=== PATIENT | female | born 1955 | race Caucasian/White ===

== ENCOUNTER 2022-10-12 16:41 | Inpatient (IN) | payer BC, MEDICARE ==
[~2022-10-12] VITALS: Ht 149.9 cm; Wt 83.0 kg
[~2022-10-12 16:41] MED LIST: HYDR25TA4 PO; LEVO200T8 PO; METO25TA4 PO; WARF-58 PO
[2022-10-12 17:24] LABS: BASOPHILS % (AUTO) 0.4 % (0.0-2.0); EOSINOPHILS # (AUTO) 0.1 K/uL (0.0-0.7); EOSINOPHILS % (AUTO) 0.6 % (0.0-6.0); HEMATOCRIT 43 % (33-45); HEMOGLOBIN 13.8 g/dL (11.5-14.8); LYMPHOCYTES % (AUTO) 21.1 % (20.0-44.0); MEAN CORPUSCULAR HEMOGLOBIN 27 PG (26.0-33.0); MEAN CORPUSCULAR HGB CONC 32 g/dl (31.0-36.0); MEAN CORPUSCULAR VOLUME 85 fL (82-100); MONOCYTES # (AUTO) 1.4 K/uL (0.1-1.30); MONOCYTES % (AUTO) 10.1 % (2.0-12.0); NEUTROPHILS # (AUTO) 9.6 K/uL (1.8-8.9); NEUTROPHILS % (AUTO) 67.8 % (43.0-81.0); PLATELET COUNT (AUTO) 313 K/uL (150-450); RED BLOOD CELL COUNT(AUTO) 5.03 MIL/uL (4.0-5.2); WHITE BLOOD COUNT (AUTO) 14.1 K/uL (4.3-11.0)
[2022-10-12] MEDS ORDERED: DILTIAZEM HCL 30 MG TABLET PO ONE (17:30)
[2022-10-12] MEDS ORDERED: DILTIAZEM HCL 25 MG IV ONE ×2 (17:44)
[2022-10-12 17:47] LABS: CALCIUM, SERUM 9.2 mg/dL (8.5-10.1); CARBON DIOXIDE 33 mmol/L (21-32); CHLORIDE 100 mmol/L (98-107); CREATININE 0.9 mg/dL (0.6-1.3); GLUCOSE 99 mg/dL (74-106); POTASSIUM 3.7 mmol/L (3.5-5.1); SODIUM SERUM 139 mmol/L (136-145); UREA NITROGEN, BLOOD 23 mg/dL (7-18)
[2022-10-12 18:00] LABS: ALANINE AMINOTRANSFERASE 74 U/L (12-78); ALBUMIN 3.5 g/dL (3.4-5.0); ALKALINE PHOSPHATASE 95 U/L (46-116); BILIRUBIN,DIRECT 0.2 mg/dL (0.0-0.2); BILIRUBIN,TOTAL 0.9 mg/dL (0.2-1.0); NT-PRO BNP 588 pg/mL (0-125); TOTAL PROTEIN, SERUM 7.6 g/dL (6.4-8.2)
[2022-10-12] MEDS ORDERED: DILTIAZEM HCL 50 MG IV IV ONE (18:00)
[2022-10-12 18:12] LABS: ASPARTATE AMINOTRANSFERASE 23 U/L (15-37)
[2022-10-12] MEDS ORDERED: FUROSEMIDE 20 MG/2 ML VIAL IV ONE (18:30)
[2022-10-12] MEDS ORDERED: DILTIAZEM HCL CD 240 MG PO ONE (18:30)
[2022-10-12] MEDS ORDERED: DILTIAZEM HCL CD 240 MG PO SCH (18:30)
[2022-10-12] MEDS ORDERED: FUROSEMIDE 20 MG/2 ML VIAL ONE (18:33)
[2022-10-12] MEDS ORDERED: SODI325T PO (19:35)
[2022-10-12] MEDS ORDERED: MONT10TA22 PO (19:35)
[2022-10-12] MEDS ORDERED: METF-881 PO (19:35)
[2022-10-12] MEDS ORDERED: DILT240T3 PO (19:35)
[2022-10-12] MEDS ORDERED: POTA10CA43 PO (19:35)
[2022-10-12] MEDS ORDERED: FERR325T23 PO (19:35)
[2022-10-12] MEDS ORDERED: FLUT1BLS INH (19:35)
[2022-10-12] MEDS ORDERED: SITA50TA PO (19:35)
[2022-10-12] MEDS ORDERED: MINE3.5O EACHEYE (19:37)
[2022-10-12] MEDS ORDERED: ACETAMINOPHEN ES 500 MG TABLET PO ONE (20:30)
[2022-10-12] MEDS ORDERED: ONDANSETRON HCL/PF 4 MG/2 ML VIAL IVP PRN (22:00)
[2022-10-12] MEDS ORDERED: ACETAMINOPHEN 325 MG TABLET PO PRN (22:00)
[2022-10-12] MEDS ORDERED: WARFARIN SODIUM 2 MG TABLET PO SCH (22:00)
[2022-10-12 22:05] VITALS: BP 106/65; TEMP 98.5; O2SAT 95
[2022-10-13] VITALS (7 sets, daily range): BP systolic 99–121; BP diastolic 58–75; TEMP 97.2–98.7; O2SAT 91–99
[2022-10-13] MEDS ORDERED: LEVALBUTEROL HCL NEB 1.25 MG/0.5 ML VIAL.NEB NEB PRN (05:30)
[2022-10-13 05:55] LABS: BASOPHILS % (AUTO) 0.1 % (0.0-2.0); EOSINOPHILS # (AUTO) 0.1 K/uL (0.0-0.7); EOSINOPHILS % (AUTO) 0.6 % (0.0-6.0); HEMATOCRIT 40 % (33-45); MEAN CORPUSCULAR HEMOGLOBIN 28 PG (26.0-33.0); MEAN CORPUSCULAR HGB CONC 32 g/dl (31.0-36.0); MEAN CORPUSCULAR VOLUME 85 fL (82-100); MONOCYTES # (AUTO) 1.2 K/uL (0.1-1.30); MONOCYTES % (AUTO) 11.1 % (2.0-12.0); NEUTROPHILS # (AUTO) 7.2 K/uL (1.8-8.9); NEUTROPHILS % (AUTO) 69.2 % (43.0-81.0); PLATELET COUNT (AUTO) 289 K/uL (150-450); RED BLOOD CELL COUNT(AUTO) 4.72 MIL/uL (4.0-5.2); RED CELL DISTRIBUTION WIDTH 16.4 % (11.5-15.0); WHITE BLOOD COUNT (AUTO) 10.4 K/uL (4.3-11.0)
[2022-10-13 06:16] LABS: CALCIUM, SERUM 9.2 mg/dL (8.5-10.1); CREATININE 1.1 mg/dL (0.6-1.3); MAGNESIUM 2.3 mg/dL (1.8-2.4); PHOSPHORUS 5.3 mg/dL (2.5-4.9); POTASSIUM 3.5 mmol/L (3.5-5.1)
[2022-10-13 06:22] LABS: INR 3.17 (0.91-1.10); PARTIAL THROMBOPLASTIN TIME 46.7 SEC (24.3-34.3); PROTHROMBIN TIME 31.2 SECS (9.2-11.1)
[2022-10-13] MEDS ORDERED: ALBUTEROL HALF STRENGTH 1.25 MG/3 ML VIAL.NEB NEB PRN ×3 (07:00)
[2022-10-13] MEDS ORDERED: DILTIAZEM HCL CD 120 MG PO SCH (09:00)
[2022-10-13] MEDS: FLUTICASONE/VILANTEROL 1 EACH BLST.W.DEV IH SCH ×2 (09:00→09:06)
[2022-10-13] MEDS: METFORMIN XR 500 MG TAB.SR.24H PO SCH ×2 (09:02→16:57)
[2022-10-13] MEDS: HYDROCHLOROTHIAZIDE 25 MG TABLET PO SCH (09:02)
[2022-10-13] MEDS: MONTELUKAST SODIUM (10MG) 10 MG TABLET PO SCH (09:02)
[2022-10-13] MEDS: LINAGLIPTIN 5 MG TABLET PO SCH (09:03)
[2022-10-13] MEDS: FERROUS SULFATE (325 MG) 325 MG/TAB TABLET PO SCH (09:03)
[2022-10-13] MEDS: POTASSIUM CHLORIDE 10 MEQ TABLET.SA PO SCH (09:03)
[2022-10-13] MEDS: LEVOTHYROXINE SODIUM 125 MCG TABLET PO SCH (09:05)
[2022-10-13] MEDS: FUROSEMIDE 40 MG/4 ML VIAL IV SCH ×2 (12:21→12:22)
[2022-10-13] MEDS ORDERED: AMIODARONE 150 MG in IV D5W 100 ML IV ONE (18:30)
[2022-10-13] MEDS: AMIODARONE 450 MG in IV D5W 241 ML IV PRN (21:09)
[2022-10-14] VITALS: BP 99/70; TEMP 98.2; O2SAT 99
[2022-10-14 04:00] VITALS: BP 98/68; TEMP 98.8; O2SAT 98
[2022-10-14] MEDS: AMIODARONE 450 MG in IV D5W 241 ML IV PRN (04:31)
[2022-10-14 08:00] VITALS: BP 101/69; TEMP 98.2; O2SAT 100
[2022-10-14] MEDS: LEVOTHYROXINE SODIUM 125 MCG TABLET PO SCH (08:20)
[2022-10-14] MEDS: POTASSIUM CHLORIDE 10 MEQ TABLET.SA PO SCH (08:20)
[2022-10-14] MEDS: LINAGLIPTIN 5 MG TABLET PO SCH (08:20)
[2022-10-14] MEDS: MONTELUKAST SODIUM (10MG) 10 MG TABLET PO SCH (08:20)
[2022-10-14] MEDS: FUROSEMIDE 40 MG/4 ML VIAL IV SCH (08:20)
[2022-10-14] MEDS: FERROUS SULFATE (325 MG) 325 MG/TAB TABLET PO SCH (08:21)
[2022-10-14] MEDS: HYDROCHLOROTHIAZIDE 25 MG TABLET PO SCH (08:21)
[2022-10-14] MEDS: FLUTICASONE/VILANTEROL 1 EACH BLST.W.DEV IH SCH (08:39)
[2022-10-14 09:38] LABS: INR 2.18 (0.91-1.10); PROTHROMBIN TIME 21.9 SECS (9.2-11.1)
[2022-10-14] MEDS: METFORMIN XR 500 MG TAB.SR.24H PO SCH ×2 (10:01→16:23)
[2022-10-14] MEDS: AMIODARONE HCL 200 MG TABLET PO SCH ×2 (11:57→21:00)
[2022-10-14 12:00] VITALS: BP 105/69; TEMP 98.4; O2SAT 100
[2022-10-14 16:00] VITALS: BP 91/59; TEMP 98.3; O2SAT 100
[2022-10-14] MEDS ORDERED: WARFARIN SODIUM 2 MG TABLET PO SCH (17:00)
[2022-10-14 20:00] VITALS: BP 93/55; TEMP 98.9; O2SAT 93
[2022-10-15] VITALS: BP 98/66; TEMP 98.7; O2SAT 98
[2022-10-15 04:00] VITALS: BP 90/55; TEMP 98.6; O2SAT 91
[2022-10-15] MEDS: LEVOTHYROXINE SODIUM 125 MCG TABLET PO SCH (07:32)
[2022-10-15 08:00] VITALS: BP 144/87; TEMP 98.2; O2SAT 99
[2022-10-15] MEDS: FUROSEMIDE 40 MG/4 ML VIAL IV SCH (08:15)
[2022-10-15] MEDS: MONTELUKAST SODIUM (10MG) 10 MG TABLET PO SCH (08:19)
[2022-10-15] MEDS: AMIODARONE HCL 200 MG TABLET PO SCH (08:19)
[2022-10-15 08:22] VITALS: BP 144/87
[2022-10-15] MEDS: LINAGLIPTIN 5 MG TABLET PO SCH (08:22)
[2022-10-15] MEDS: METFORMIN XR 500 MG TAB.SR.24H PO SCH (08:22)
[2022-10-15] MEDS: HYDROCHLOROTHIAZIDE 25 MG TABLET PO SCH (08:22)
[2022-10-15] MEDS: FERROUS SULFATE (325 MG) 325 MG/TAB TABLET PO SCH (08:22)
[2022-10-15] MEDS: POTASSIUM CHLORIDE 10 MEQ TABLET.SA PO SCH (08:24)
[2022-10-15] MEDS ORDERED: FURO40TA5 PO (08:33)
[2022-10-15] MEDS ORDERED: AMIO200T7 PO (08:33)
[2022-10-15 09:36] LABS: INR 1.83 (0.91-1.10); PROTHROMBIN TIME 18.6 SECS (9.2-11.1)
== END 2022-10-15 13:00 | disposition home or self-care (01) | DRG 308 ==
LOC: ER 16:51 → TELE 21:24 → TELE1 10-13 19:47 → TELE-TD 10-13 20:24
PROVIDERS: ADMIT Nurse Practitioner Acute Care; ATTEND Internal Medicine
PROC: 05H633Z Insertion of Infusion Device into Left Subclavian Vein, Percutaneous Approach (ICD-10-PCS; principal; 2022-10-14)
PROC: B547ZZA Ultrasonography of Left Subclavian Vein, Guidance (ICD-10-PCS; 2022-10-14)
DX: I48.91 Unspecified atrial fibrillation (principal); I50.33 Acute on chronic diastolic (congestive) heart failure; D68.69 Other thrombophilia; I48.92 Unspecified atrial flutter; I11.0 Hypertensive heart disease with heart failure; J44.9 Chronic obstructive pulmonary disease, unspecified; E11.9 Type 2 diabetes mellitus without complications; I48.0 Paroxysmal atrial fibrillation; Z79.899 Other long term (current) drug therapy; Z79.01 Long term (current) use of anticoagulants; Z86.711 Personal history of pulmonary embolism; Z95.0 Presence of cardiac pacemaker; E03.9 Hypothyroidism, unspecified; Z79.84 Long term (current) use of oral hypoglycemic drugs; D72.829 Elevated white blood cell count, unspecified; G47.33 Obstructive sleep apnea (adult) (pediatric); E66.01 Morbid (severe) obesity due to excess calories; Z68.37 Body mass index [BMI] 37.0-37.9, adult
CPT/HCPCS: 36410; 36415; 71045-TC; 80048-TC; 80061-TC; 80076-TC; 83735-TC; 83880; 84100-TC; 84443-TC; 84484-TC; 85025-TC; 85610-TC; 85730-TC; 93307-TC; 94799-TC; A4223; G0378; J0282; J1940; J3490; J7060